=== PATIENT | male | born 1980 ===

== ENCOUNTER 2018-04-05 00:04 | Emergency (ER) | payer OTHER ==
[2018-04-05 00:14] VITALS: RESP 20; TEMP 97.9; O2SAT 98
--- NOTE | 2018-04-05 00:31 | C.PDOC ---
History Of Present Illness 37 year old male presents to ED with complaints of rash and itching to his hands for 3 days. 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 He states he has been applying cortisone to area with mild relief. Area is mostly itchy but noticed right index finger becoming swollen. Denies pain, fever, numbness, weakness, or SOB. Time Seen by Provider: 04/05/18 00:15 Chief Complaint (Nursing): Upper Extremity Problem/Injury History Per: Patient History/Exam Limitations: no limitations Onset/Duration Of Symptoms: Days (3) Current Symptoms Are (Timing): Still Present Past Medical History Reviewed: Historical Data, Nursing Documentation, Vital Signs Vital Signs: Last Vital Signs Temp 97.9 F 04/05/18 00:11 Pulse 86 04/05/18 00:11 Resp 20 04/05/18 00:11 BP 137/89 04/05/18 00:11 Pulse Ox 98 04/05/18 00:33 - Medical History PMH: No Chronic Diseases Surgical History: No Surg Hx Family History: States: Unknown Family Hx - Social History Hx Alcohol Use: Yes Hx Substance Use: No - Immunization History Hx Tetanus Toxoid Vaccination: No Hx Influenza Vaccination: No Hx Pneumococcal Vaccination: No Review Of Systems Except As Marked, All Systems Reviewed And Found Negative. Skin: Positive for: Rash Physical Exam - Physical Exam Appears: Non-toxic, No Acute Distress Skin: Warm, Dry, Rash (dome shaped lesions and papules on erythematous base to left second digit and few to right ulnar aspect of palm, dry flaky skin; no vesicles) Head: Atraumatic, Normacephalic Eye(s): bilateral: Normal Inspection, EOMI Neck: Normal ROM Chest: Symmetrical Extremity: Bilateral: Atraumatic, Normal ROM Neurological/Psych: Oriented x3, Normal Speech ED Course And Treatment O2 Sat by Pulse Oximetry: 98 Medical Decision Making Medical Decision Making: Patient with rash to hands. No signs of cellulitis or other infectious process. Prednisone PO given. Disposition Counseled Patient/Family Regarding: Diagnosis, Need For Followup, Rx Given - [facility] [Outside] Disposition: HOME/ ROUTINE Disposition Time: 00:37 Condition: GOOD Additional Instructions: Starks benadryl para picazn y sarpullido Starks prednisona para la inflamacin y la erupcin Seguimiento en la clnica Prescriptions: DiphenhydrAMINE [Benadryl] 25 mg PO Q4 PRN #30 cap PRN Reason: Itching / Pruritus predniSONE [predniSONE Tab] 40 mg PO DAILY #10 tab Instructions: Eczema (Atopic Dermatitis) (DC) Forms: [email or web address] (Angolan) Print Language: [email or web address] - POA Present On Arrival: None - Clinical Impression Clinical Impression: Dermatitis
[2018-04-05 01:41] VITALS: BP 122/78; PULSE 88
== END 2018-04-05 00:30 | disposition home or self-care (01) ==
LOC: C.ER 00:04
DX: L30.9 Dermatitis, unspecified (principal)